=== PATIENT | female | born 1990 | race Caucasian/White ===

== ENCOUNTER 2016-09-05 12:00 | Emergency (ER) | payer OTHER ==
[~2016-09-05] VITALS: Ht 157.5 cm; Wt 67.5 kg
[~2016-09-05 12:00] MED LIST: ERYTHROMYC1 APPLICAT LEFT EYE; KEFLEX500 MG PO; MACROBID100 MG PO; NORCO 5/3251 TABLET PO; PRENATAL VITAM1 EAC1 PO
[2016-09-05 14:24] VITALS: BP 118/74
== END 2016-09-05 14:43 | disposition home or self-care (01) ==
LOC: EME 12:00
DX: O26.891 Other specified pregnancy related conditions, first trimester (principal); J02.0 Streptococcal pharyngitis; A08.4 Viral intestinal infection, unspecified; Z3A.01 Less than 8 weeks gestation of pregnancy
CPT/HCPCS: 87651 90; 99281; 99283; J0561

== ENCOUNTER 2017-03-28 23:55 | Outpatient (CLI) | payer OTHER ==
[2017-03-29 00:13] VITALS: BP 129/77
[2017-03-29 02:11] VITALS: BP 125/71
== END 2017-03-29 02:36 | disposition home or self-care (01) ==
LOC: LDRP-OP → 2WEST 23:56 → LDRP-OP 05-26 14:32
DX: O47.03 False labor before 37 completed weeks of gestation, third trimester (principal); Z3A.35 35 weeks gestation of pregnancy
CPT/HCPCS: 59025; 87081; G0378

== ENCOUNTER 2017-04-02 20:21 | Outpatient (CLI) | payer OTHER ==
[~2017-04-02] VITALS: Ht 154.9 cm; Wt 74.8 kg
[2017-04-02 20:35] VITALS: BP 146/80
[2017-04-02 21:23] LABS: APPEARANCE CLOUDY ((CLEAR)); BILIRUBIN NEGATIVE; BLOOD NEGATIVE; COLOR AMBER ((YELLOW)); GLUCOSE (STRIP) NEGATIVE; KETONES NEGATIVE; LEUKOCYTES SMALL; NITRITE NEGATIVE; PROTEIN (STRIP) NEGATIVE
[2017-04-02 21:54] LABS: EPITHELIAL CELLS 4+ /HPF; MUCUS 3+ /LPF
[2017-04-02 21:55] VITALS: BP 118/69
[2017-04-02 21:55] LABS: BACTERIA 4+ /HPF; RED BLOOD CELLS NONE SEEN /HPF (0-5)
[2017-04-02] MEDS ORDERED: MACROBID100 MG PO (22:29)
[2017-04-02] MEDS ORDERED: TYLENOL ARTHRI650 MG PO (22:30)
== END 2017-04-02 23:30 | disposition home or self-care (01) ==
LOC: LDRP-OP 20:21 → 2WEST 20:23 → LDRP-OP 05-26 03:33
PROVIDERS: Advanced Practice Midwife
DX: O47.03 False labor before 37 completed weeks of gestation, third trimester (principal); O23.43 Unspecified infection of urinary tract in pregnancy, third trimester; Z3A.36 36 weeks gestation of pregnancy
CPT/HCPCS: 59025; 81003; 87086; G0378

== ENCOUNTER 2017-04-21 09:13 | Inpatient (IN) | payer OTHER ==
[~2017-04-21] VITALS: Ht 154.9 cm; Wt 75.0 kg
[2017-04-21] VITALS (8 sets, daily range): BP systolic 106–136; BP diastolic 52–75
[~2017-04-21 09:13] MED LIST changes: +TYLENOL ARTHRI650 MG PO
[2017-04-21 10:46] LABS: BASOPHIL (%) 0.3 % (0-1); EOSINOPHIL (%) 0.7 % (0-5); EOSINOPHIL COUNT 0.1 K/uL (0-0.3); HEMATOCRIT 35.6 % (36.0-46.0); IMMATURE GRANULOCYTE (%) 0.3 % (0.0-0.7); LYMPHOCYTE COUNT 1.5 K/uL (1.0-2.8); MCH 22.9 PG (29.0-34.0); MCHC 30.9 G/DL (30.0-36.0); MCV 74.2 FL (83-99); MONOCYTE (%) 6.8 % (3-12); MONOCYTE COUNT 0.6 K/uL (0-0.8); NEUTROPHIL (%) 75.9 % (45-76); PLATELET COUNT 227 K/uL (156-360); RBC DIS.WIDTH-CV 16.7 % (11.8-14.6); RBC DIS.WIDTH-SD 44.6 % (39-53); WHITE BLOOD COUNT 9.2 K/uL (4.1-10.2)
[2017-04-22 06:26] LABS: BASOPHIL (%) 0.3 % (0-1); EOSINOPHIL (%) 0.7 % (0-5); EOSINOPHIL COUNT 0.1 K/uL (0-0.3); HEMATOCRIT 29.2 % (36.0-46.0); IMMATURE GRANULOCYTE (%) 0.3 % (0.0-0.7); LYMPHOCYTE (%) 28.1 % (15-42); MCHC 30.8 G/DL (30.0-36.0); MCV 74.5 FL (83-99); MONOCYTE (%) 7.8 % (3-12); MONOCYTE COUNT 0.6 K/uL (0-0.8); NEUTROPHIL (%) 62.8 % (45-76); NEUTROPHIL COUNT 4.5 K/uL (1.8-6.4); PLATELET COUNT 201 K/uL (156-360); RBC DIS.WIDTH-CV 16.8 % (11.8-14.6); RBC DIS.WIDTH-SD 45.1 % (39-53); RED BLOOD COUNT 3.92 M/uL (3.80-5.20); WHITE BLOOD COUNT 7.1 K/uL (4.1-10.2)
== END 2017-04-22 15:05 | disposition home or self-care (01) | DRG 775 ==
LOC: LDRP-OP 09:13 → 2WEST 09:14 → LDRP-OP 05-26
PROVIDERS: Advanced Practice Midwife
DX: O77.0 Labor and delivery complicated by meconium in amniotic fluid (principal); O99.02 Anemia complicating childbirth; D62 Acute posthemorrhagic anemia; N39.41 Urge incontinence; Z3A.39 39 weeks gestation of pregnancy; Z37.0 Single live birth; O99.353 Diseases of the nervous system complicating pregnancy, third trimester; G43.909 Migraine, unspecified, not intractable, without status migrainosus; O99.213 Obesity complicating pregnancy, third trimester; Z68.27 Body mass index [BMI] 27.0-27.9, adult; E66.3 Overweight
CPT/HCPCS: 85025; J7120

== ENCOUNTER 2017-08-02 11:04 | Day surgery (SDC) | payer OTHER ==
[~2017-08-02] VITALS: Ht 154.9 cm; Wt 65.0 kg
[~2017-08-02 11:04] MED LIST changes: +TYLENOL EXTRA500 MG PO
[2017-08-02 11:34] VITALS: BP 103/67
[2017-08-02] MEDS ORDERED: ENDOCET 5-3251 EACH PO (13:26)
[2017-08-02 14:40] VITALS: BP 114/71
[2017-08-02 15:34] VITALS: BP 117/71
== END 2017-08-02 15:45 | disposition home or self-care (01) ==
LOC: SDC 11:04
PROC: 0U574ZZ Destruction of Bilateral Fallopian Tubes, Percutaneous Endoscopic Approach (ICD-10-PCS; principal; 2017-08-02)
DX: Z30.2 Encounter for sterilization (principal)
CPT/HCPCS: J1100; J1885; J2250; J2405; J2710; J3010; J7643; S0020